=== PATIENT | male | born 1955 | race Caucasian/White ===

== ENCOUNTER 2017-02-19 03:24 | Inpatient (IN) | payer MEDICARE, MEDICAID ==
[2017-02-19] VITALS (38 sets, daily range): BP systolic 112–152; BP diastolic 67–101
[~2017-02-19] VITALS: Ht 180.3 cm; Wt 54.7 kg
[2017-02-19] MEDS ORDERED: IPRATROPIUM BROMIDE (0.02%) 0.5MG/2.5ML NEB HHN STA (03:41)
[2017-02-19] MEDS ORDERED: METHYLPREDNISOLONE SOD SUCC 125 MG/2 ML VIAL IV STA (03:41)
[2017-02-19] MEDS ORDERED: ALBUTEROL (0.083%) 2.5MG/3ML NEB HHN STA (03:41)
[2017-02-19] MEDS ORDERED: ASPIRIN 81MG TABLET PO ONE (03:45)
[2017-02-19] MEDS ORDERED: MAGNESIUM 2 G PREMIX 50 ML IV ONE (03:45)
[2017-02-19] MEDS ORDERED: ALBUTEROL (0.5%) 2.5MG/0.5ML NEB HHN ONE (04:25)
[2017-02-19 04:31] LABS: BASOPHILS % 0.6 % (0.0-2.0); EOSINOPHILS % 1.3 % (0.0-5.0); HEMATOCRIT. 37.5 % (42.0-52.0); HEMOGLOBIN. 12.6 g/dL (14.0-18.0); LYMPHOCYTES % 25.9 % (20.0-50.0); MEAN CORPUSCULAR HEMOGLOBIN 31.4 pg (28.0-32.0); MEAN CORPUSCULAR VOLUME 93.5 fL (80.0-94.0); MEAN PLATELET VOLUME 9.2 fl (7.4-10.4); MONOCYTES % 12.4 % (2.0-8.0); NEUTROPHILS % 59.8 % (40.0-76.0); PLATELET 162 x1000/uL (130-400); RED BLOOD CELL COUNT 4.01 mill/uL (4.7-6.1); RED CELL DISTRIBUTION WIDTH 18.8 % (11.6-14.6)
[2017-02-19 04:41] LABS: BG BASE EXCESS 3.7 mmol/L (-2.0-2.0); BG CARBOXYHEMOGLOBIN 2.7 % (0.5-1.5); BG DEOXYHEMOGLOBIN 2.1 % (0.0-5.0); BG FRACTION INSPIRED OXYGEN 50; BG HCO3 ACT 31.3 mmol/L (22.0-26.0); BG METHEMOGLOBIN 0.7 % (0.0-1.5); BG OXYGEN SATURATION 97.8 % (92.0-98.5); BG OXYHEMOGLOBIN 94.5 % (94.0-97.0); BG PCO2 62.2 mmHg (35.0-45.0); BG PO2 165.9 mmHg (75.0-100.0); BG SAMPLE SITE RIGHT RADIAL; BG TOTAL HEMOGLOBIN 12.2 g/dL (12.0-18.0); BG VENT MODE MASK - AEROSOL
[2017-02-19 04:44] LABS: D-DIMER 0.86 mg/L FEU (<0.50); PROTHROMBIN TIME 10.7 sec (9.4-11.6)
[2017-02-19 04:50] LABS: CARBON DIOXIDE 33 mEq/L (21-32); CHLORIDE 101 mEq/L (98-107); ETHANOL BLOOD < 10 mg/dL; TROPONIN I < 0.02 ng/mL (0.00-0.04)
[2017-02-19] MEDS ORDERED: SODIUM CHLORIDE 0.9% 1,000 ML IV ONE ×3 (04:52→06:13)
[2017-02-19] MEDS ORDERED: ACETAMINOPHEN 325MG TABLET PO ONE (06:30)
[2017-02-19] MEDS: LEVOFLOXACIN 750MG PREMIX 150 ML IV ONE ×2 (06:34→06:56)
[2017-02-19 06:36] LABS: *AMPHETAMINES SCREEN URINE NEGATIVE (NEGATIVE); *BARBITURATES SCREEN URINE NEGATIVE (NEGATIVE); *BENZODIAZEPINES SCREEN URINE PRESUMTIVE POSITIVE (NEGATIVE); *COCAINE SCREEN URINE NEGATIVE (NEGATIVE); CANNABINOID URINE SCREEN NEGATIVE (NEGATIVE); METHADONE URINE SCREEN NEGATIVE (NEGATIVE); OPIATES URINE SCREEN PRESUMTIVE POSITIVE (NEGATIVE); PHENCYCLIDINE URINE SCREEN NEGATIVE (NEGATIVE)
[2017-02-19] MEDS ORDERED: GUAIFENESIN 200MG/10ML SUGAR FREE UDC PO PRN (06:45)
[2017-02-19] MEDS ORDERED: ONDANSETRON HCL 4MG/2ML VIAL IV PRN (06:45)
[2017-02-19] MEDS ORDERED: MAGNESIUM/ALUMINUM HYDROXIDE/SIMETHICONE 30ML UDC PO PRN (06:45)
[2017-02-19] MEDS ORDERED: CLONIDINE 0.1MG TABLET PO PRN (06:45)
[2017-02-19] MEDS ORDERED: DIPHENHYDRAMINE 50MG/ML VIAL IV PRN (06:45)
[2017-02-19] MEDS ORDERED: IPRATROPIUM/ALBUTEROL 0.5-3(2.5)MG/3ML NEB INH PRN (06:45)
[2017-02-19] MEDS ORDERED: ACETAMINOPHEN 325MG TABLET PO PRN (06:45)
[2017-02-19] MEDS ORDERED: NOREPINEPHRINE 4 MG in DEXT 5% WATER 246 ML IV ONE (09:30)
[2017-02-19] MEDS ORDERED: SODIUM CHLORIDE 0.9% 10ML VIAL ONE (13:40)
[2017-02-19] MEDS ORDERED: IOHEXOL-350 100 ML BOTTLE ONE (13:40)
[2017-02-19 13:58] LABS: HEPATITIS B SURFACE ANTIGEN NEGATIVE
[2017-02-19 14:18] LABS: BG BASE EXCESS 1.4 mmol/L (-2.0-2.0); BG DEOXYHEMOGLOBIN 3.1 % (0.0-5.0); BG FRACTION INSPIRED OXYGEN 32; BG HCO3 ACT 26.9 mmol/L (22.0-26.0); BG METHEMOGLOBIN 0.1 % (0.0-1.5); BG OXYGEN SATURATION 96.8 % (92.0-98.5); BG OXYHEMOGLOBIN 94.8 % (94.0-97.0); BG PCO2 45.9 mmHg (35.0-45.0); BG PH 7.385 (7.350-7.450); BG PO2 95.7 mmHg (75.0-100.0); BG SAMPLE SITE RIGHT BRACHIAL; BG TOTAL HEMOGLOBIN 12.5 g/dL (12.0-18.0); BG VENT MODE NASAL CANNULA
[2017-02-19 14:27] LABS: HEPATITIS B CORE AB IGM NEGATIVE
[2017-02-19 14:28] LABS: HEPATITIS A AB IGM NEGATIVE (NEGATIVE)
[2017-02-19] MEDS: NOREPINEPHRINE 4 MG in DEXT 5% WATER 246 ML IV PRN ×2 (14:30→22:09)
[2017-02-19] MEDS ORDERED: DIAZ5TAB4 PO (15:20)
[2017-02-19] MEDS ORDERED: MORP30TA66 PO (15:20)
[2017-02-19] MEDS: METHYLPREDNISOLONE SOD SUCC 125 MG/2 ML VIAL IV SCH ×2 (15:45→21:29)
[2017-02-19] MEDS: DIAZEPAM 5 MG TABLET PO SCH ×2 (15:46→21:29)
[2017-02-19] MEDS: MORPHINE SULFATE 30MG TABLET SR PO SCH ×2 (15:47→22:16)
[2017-02-19] MEDS: NICOTINE 14MG PATCH TD SCH (15:49)
[2017-02-19] MEDS: SODIUM CHLORIDE 0.9% INJ 3ML FLUSH IVF SCH ×2 (15:59→21:29)
[2017-02-19] MEDS: BUDESONIDE 0.5MG/2ML NEB HHN SCH (17:00)
[2017-02-19] MEDS: IPRATROPIUM/ALBUTEROL 0.5-3(2.5)MG/3ML NEB HHN SCH ×2 (17:00→20:19)
[2017-02-19] MEDS ORDERED: PRED10TA (18:12)
[2017-02-19] MEDS ORDERED: FLUT16SP15 (18:12)
[2017-02-19] MEDS ORDERED: ATOR-2 (18:12)
[2017-02-19] MEDS ORDERED: CLOP75TA33 (18:12)
[2017-02-19] MEDS ORDERED: RISP0.5T19 (18:12)
[2017-02-19] MEDS ORDERED: TRAM50TA3 (18:12)
[2017-02-19] MEDS ORDERED: LORA2TAB2 (18:12)
[2017-02-19] MEDS ORDERED: PREG50CA (18:12)
[2017-02-19] MEDS ORDERED: SULF1TAB44 (18:12)
[2017-02-19] MEDS ORDERED: MED4 (18:12)
[2017-02-19] MEDS ORDERED: PROAIR (18:12)
[2017-02-19] MEDS ORDERED: MIRT15TA6 (18:12)
[2017-02-19] MEDS ORDERED: LISI-604 (18:12)
[2017-02-19] MEDS ORDERED: METO-385 (18:12)
[2017-02-19] MEDS ORDERED: ATOR20TA65 (18:12)
[2017-02-19] MEDS ORDERED: TIOT18CA3 (18:12)
[2017-02-19] MEDS ORDERED: ELVI1TAB3 (18:12)
[2017-02-19] MEDS ORDERED: PNEUMOCOCCAL 23-VAL P-SAC VAC 0.5 ML IM ONE (21:00)
[2017-02-19] MEDS ORDERED: INFLUENZA VIRUS VACCINE 0.5ML SYR IM ONE (21:00)
[2017-02-20] VITALS (56 sets, daily range): BP systolic 80–134; BP diastolic 42–84
[2017-02-20] MEDS: IPRATROPIUM/ALBUTEROL 0.5-3(2.5)MG/3ML NEB HHN SCH ×6 (00:21→20:53)
[2017-02-20] MEDS ORDERED: NOREPINEPHRINE 4 MG in DEXT 5% WATER 246 ML IV PRN (01:15)
[2017-02-20] MEDS: BUDESONIDE 0.5MG/2ML NEB HHN SCH ×3 (04:56→20:52)
[2017-02-20 05:28] LABS: HEMATOCRIT. 34.3 % (42.0-52.0); HEMOGLOBIN. 11.3 g/dL (14.0-18.0); MEAN CORPUSCULAR HEMOGLOBIN 30.5 pg (28.0-32.0); MEAN CORPUSCULAR VOLUME 92.1 fL (80.0-94.0); PLATELET 223 x1000/uL (130-400); RED BLOOD CELL COUNT 3.72 mill/uL (4.7-6.1); RED CELL DISTRIBUTION WIDTH 17.9 % (11.6-14.6)
[2017-02-20] MEDS: SODIUM CHLORIDE 0.9% INJ 3ML FLUSH IVF SCH ×3 (05:54→23:05)
[2017-02-20] MEDS: DIAZEPAM 5 MG TABLET PO SCH ×3 (05:54→23:02)
[2017-02-20] MEDS: METHYLPREDNISOLONE SOD SUCC 125 MG/2 ML VIAL IV SCH (05:54)
[2017-02-20 05:55] LABS: CARBON DIOXIDE 29 mEq/L (21-32); CHLORIDE 102 mEq/L (98-107)
[2017-02-20] MEDS ORDERED: NOREPINEPHRINE 8 MG in DEXT 5% WATER 242 ML IV PRN (08:45)
[2017-02-20] MEDS: CLOPIDOGREL 75MG TABLET PO SCH (08:53)
[2017-02-20] MEDS: RISPERIDONE 0.5MG TABLET PO SCH ×2 (08:54→17:01)
[2017-02-20] MEDS: MORPHINE SULFATE 30MG TABLET SR PO SCH ×2 (08:58→20:27)
[2017-02-20] MEDS: FLUTICASONE PROPIONATE 50MCG/SPRAY BOTTLE BOTHNSTRLS SCH (09:00)
[2017-02-20] MEDS: SULFAMETHOXAZOLE/TRIMETHOPRIM 800/160MG TABLET PO SCH (09:00)
[2017-02-20] MEDS ORDERED: FLUTICASONE PROPIONATE 50MCG/SPRAY BOTTLE BOTHNSTRLS SCH (09:00)
[2017-02-20] MEDS: PREGABALIN 50 MG CAPSULE PO SCH (09:00)
[2017-02-20] MEDS: NICOTINE 14MG PATCH TD SCH (09:25)
[2017-02-20] MEDS: PREDNISONE 20MG TABLET PO SCH ×3 (09:58→17:01)
[2017-02-20] MEDS: AZITHROMYCIN 500 MG TABLET PO SCH (09:58)
[2017-02-20 13:43] LABS: PLATELET ESTIMATE NORMAL
[2017-02-20 18:03] LABS: CLARITY URINE CLEAR (CLEAR); COLOR URINE YELLOW (YELLOW); GLUCOSE URINE 2+ (NEGATIVE); KETONES URINE NEGATIVE (NEGATIVE); LEUKOCYTE ESTERASE URINE NEGATIVE (NEGATIVE); NITRITE URINE NEGATIVE (NEGATIVE); OCCULT BLOOD URINE NEGATIVE (NEGATIVE); PROTEIN URINE NEGATIVE (NEGATIVE); SPECIFIC GRAVITY URINE 1.018 (1.005-1.030); UROBILINOGEN URINE 0.2 E.U./dL (0.2-1.0)
[2017-02-20] MEDS: TRAMADOL 50MG TABLET PO PRN (18:34)
[2017-02-20] MEDS: ATORVASTATIN CALCIUM 20MG TABLET PO SCH (20:26)
[2017-02-20] MEDS: MIRTAZAPINE 15MG TABLET PO SCH (20:27)
[2017-02-21] VITALS: BP 90/53
[2017-02-21] MEDS: IPRATROPIUM/ALBUTEROL 0.5-3(2.5)MG/3ML NEB HHN SCH ×2 (02:29→20:53)
[2017-02-21 04:00] VITALS: BP 92/56
[2017-02-21] MEDS: DIAZEPAM 5 MG TABLET PO SCH ×3 (05:19→22:10)
[2017-02-21] MEDS: SODIUM CHLORIDE 0.9% INJ 3ML FLUSH IVF SCH ×3 (05:20→22:12)
[2017-02-21 08:00] VITALS: BP 112/70
[2017-02-21] MEDS: AZITHROMYCIN 500 MG TABLET PO SCH (09:06)
[2017-02-21] MEDS: RISPERIDONE 0.5MG TABLET PO SCH ×2 (09:06→16:45)
[2017-02-21] MEDS: CLOPIDOGREL 75MG TABLET PO SCH (09:06)
[2017-02-21] MEDS: MORPHINE SULFATE 30MG TABLET SR PO SCH ×2 (09:08→22:10)
[2017-02-21] MEDS: PREGABALIN 50 MG CAPSULE PO SCH (09:09)
[2017-02-21] MEDS: BUDESONIDE 0.5MG/2ML NEB HHN SCH ×2 (09:10→20:54)
[2017-02-21] MEDS: FLUTICASONE PROPIONATE 50MCG/SPRAY BOTTLE BOTHNSTRLS SCH (09:34)
[2017-02-21] MEDS: PREDNISONE 20MG TABLET PO SCH ×3 (09:34→18:58)
[2017-02-21] MEDS: SULFAMETHOXAZOLE/TRIMETHOPRIM 800/160MG TABLET PO SCH (09:34)
[2017-02-21 12:00] VITALS: BP 116/73
[2017-02-21 16:00] VITALS: BP 103/65
[2017-02-21] MEDS: TRAMADOL 50MG TABLET PO PRN (16:46)
[2017-02-21 20:00] VITALS: BP 97/60
[2017-02-21] MEDS: ATORVASTATIN CALCIUM 20MG TABLET PO SCH (22:10)
[2017-02-21] MEDS: MIRTAZAPINE 15MG TABLET PO SCH (22:10)
[2017-02-21] MEDS: NICOTINE 14MG PATCH TD SCH (22:11)
[2017-02-22] VITALS: BP 98/61
[2017-02-22] MEDS: IPRATROPIUM/ALBUTEROL 0.5-3(2.5)MG/3ML NEB HHN SCH ×6 (00:44→20:00)
[2017-02-22 04:00] VITALS: BP 118/69
[2017-02-22] MEDS: DIAZEPAM 5 MG TABLET PO SCH ×3 (06:06→22:16)
[2017-02-22] MEDS: SODIUM CHLORIDE 0.9% INJ 3ML FLUSH IVF SCH ×3 (06:06→22:20)
[2017-02-22 08:00] VITALS: BP 109/68
[2017-02-22] MEDS: FLUTICASONE PROPIONATE 50MCG/SPRAY BOTTLE BOTHNSTRLS SCH (08:57)
[2017-02-22] MEDS: CLOPIDOGREL 75MG TABLET PO SCH (08:57)
[2017-02-22] MEDS: AZITHROMYCIN 500 MG TABLET PO SCH (08:57)
[2017-02-22] MEDS: RISPERIDONE 0.5MG TABLET PO SCH ×2 (08:58→17:36)
[2017-02-22] MEDS: SULFAMETHOXAZOLE/TRIMETHOPRIM 800/160MG TABLET PO SCH (08:58)
[2017-02-22] MEDS: PREDNISONE 20MG TABLET PO SCH ×3 (08:58→17:36)
[2017-02-22] MEDS: PREGABALIN 50 MG CAPSULE PO SCH (08:58)
[2017-02-22] MEDS: MORPHINE SULFATE 30MG TABLET SR PO SCH ×2 (08:59→22:19)
[2017-02-22] MEDS: NICOTINE 14MG PATCH TD SCH (09:00)
[2017-02-22 11:03] LABS: BG BASE EXCESS 3.2 mmol/L (-2.0-2.0); BG CARBOXYHEMOGLOBIN 0.7 % (0.5-1.5); BG FRACTION INSPIRED OXYGEN 21; BG HCO3 ACT 27.4 mmol/L (22.0-26.0); BG METHEMOGLOBIN 0.2 % (0.0-1.5); BG OXYGEN SATURATION 93.9 % (92.0-98.5); BG OXYHEMOGLOBIN 93.1 % (94.0-97.0); BG PH 7.453 (7.350-7.450); BG PO2 70.2 mmHg (75.0-100.0); BG SAMPLE SITE RIGHT BRACHIAL; BG VENT MODE ROOM AIR
[2017-02-22 12:00] VITALS: BP 115/67
[2017-02-22 16:00] VITALS: BP 137/65
[2017-02-22] MEDS: BUDESONIDE 0.5MG/2ML NEB HHN SCH ×2 (16:30→20:28)
[2017-02-22 20:00] VITALS: BP 117/79
[2017-02-22] MEDS: ATORVASTATIN CALCIUM 20MG TABLET PO SCH (22:16)
[2017-02-22] MEDS: MIRTAZAPINE 15MG TABLET PO SCH (22:20)
[2017-02-23] VITALS: BP 108/65
[2017-02-23] MEDS: IPRATROPIUM/ALBUTEROL 0.5-3(2.5)MG/3ML NEB HHN SCH ×4 (01:02→12:00)
[2017-02-23 04:00] VITALS: BP 116/78
[2017-02-23] MEDS: DIAZEPAM 5 MG TABLET PO SCH ×2 (05:41→14:26)
[2017-02-23] MEDS: SODIUM CHLORIDE 0.9% INJ 3ML FLUSH IVF SCH ×2 (05:41→14:27)
[2017-02-23 08:00] VITALS: BP 124/79
[2017-02-23] MEDS: BUDESONIDE 0.5MG/2ML NEB HHN SCH (08:38)
[2017-02-23] MEDS: PREGABALIN 50 MG CAPSULE PO SCH (09:49)
[2017-02-23] MEDS: PREDNISONE 20MG TABLET PO SCH (09:50)
[2017-02-23] MEDS: CLOPIDOGREL 75MG TABLET PO SCH (09:50)
[2017-02-23] MEDS: MORPHINE SULFATE 30MG TABLET SR PO SCH (09:50)
[2017-02-23] MEDS: SULFAMETHOXAZOLE/TRIMETHOPRIM 800/160MG TABLET PO SCH (09:50)
[2017-02-23] MEDS: RISPERIDONE 0.5MG TABLET PO SCH (09:50)
[2017-02-23] MEDS: AZITHROMYCIN 500 MG TABLET PO SCH (09:50)
[2017-02-23] MEDS: NICOTINE 14MG PATCH TD SCH (09:51)
[2017-02-23 12:00] VITALS: BP 101/71
[2017-02-23 15:12] VITALS: BP 101/71
== END 2017-02-23 16:13 | disposition home or self-care (01) | DRG 314 ==
LOC: ER 03:32 → CANRESERV 10:16 → ENRESERV 10:16 → MICUSO 12:33 → EDBEDREQTM 12:34 → EDBEDREQ 12:34 → EDBEDREQSVC 12:34 → ENRESERV 13:22 → 6EST 02-20 18:13
PROVIDERS: ADMIT Internal Medicine; ATTEND Internal Medicine
DX: I95.9 Hypotension, unspecified (principal); J96.00 Acute respiratory failure, unspecified whether with hypoxia or hypercapnia; E46 Unspecified protein-calorie malnutrition; E87.2 Acidosis; J44.1 Chronic obstructive pulmonary disease with (acute) exacerbation; Z68.1 Body mass index [BMI] 19.9 or less, adult; Z99.81 Dependence on supplemental oxygen; E78.5 Hyperlipidemia, unspecified; F17.210 Nicotine dependence, cigarettes, uncomplicated; G40.909 Epilepsy, unspecified, not intractable, without status epilepticus; G62.9 Polyneuropathy, unspecified; I25.10 Atherosclerotic heart disease of native coronary artery without angina pectoris; M79.7 Fibromyalgia; J45.909 Unspecified asthma, uncomplicated; Z66 Do not resuscitate; Z95.5 Presence of coronary angioplasty implant and graft; Z79.899 Other long term (current) drug therapy; Z88.0 Allergy status to penicillin; Z82.49 Family history of ischemic heart disease and other diseases of the circulatory system; I25.2 Old myocardial infarction; Z21 Asymptomatic human immunodeficiency virus [HIV] infection status
CPT/HCPCS: 36415; 36600; 71010; 71275; 80048; 80053; 80305; 81001; 82375; 82805; 83605; 83690; 83880; 84484; 85025; 85379; 85610; 86705; 86709; 86803; 87040; 87340; 90686; 90732; 93005; 93970; 94620; 94640; 94664; 96361; 96365; 96366; 96367; 96375; 97116; 97163; 99285; A4216; G0482; J1956; J2930; J3475; J3490; J7030; J7060; J7512; J7611; J7620; J7626; Q9967